=== PATIENT | female | born 1995 | race Caucasian/White ===

== ENCOUNTER 2017-01-12 09:10 | Emergency (ER) | payer OTHER ==
[2017-01-12 10:54] LABS: microscopic required? NO
[2017-01-12 11:03] LABS: UA SPECIFIC GRAVITY 1.015 (1.005-1.035); urine erythrocyte NEGATIVE (NEGATIVE)
[2017-01-12 11:57] VITALS: BP 110/84
== END 2017-01-12 11:57 | disposition home or self-care (01) ==
LOC: ED 09:10
PROVIDERS: Emergency Medicine
DX: N72 Inflammatory disease of cervix uteri (principal); N76.0 Acute vaginitis; B96.89 Other specified bacterial agents as the cause of diseases classified elsewhere; M54.5 Low back pain
CPT/HCPCS: 87491; 87591; J0696

== ENCOUNTER 2017-02-08 21:11 | Emergency (ER) | payer OTHER ==
[2017-02-08 21:17] VITALS: BP 125/83
== END 2017-02-08 22:29 | disposition home or self-care (01) ==
LOC: ED 21:11
DX: H66.92 Otitis media, unspecified, left ear (principal); H10.029 Other mucopurulent conjunctivitis, unspecified eye; J02.9 Acute pharyngitis, unspecified
CPT/HCPCS: J0696

== ENCOUNTER 2017-04-11 15:22 | Emergency (ER) | payer OTHER ==
[~2017-04-11] VITALS: Ht 157.5 cm; Wt 45.4 kg
[2017-04-11 15:40] VITALS: Ht 157.5 cm; Wt 45.4 kg
[2017-04-11 21:20] VITALS: BP 120/82
== END 2017-04-11 21:20 | disposition home or self-care (01) ==
LOC: ED 15:22
DX: N76.0 Acute vaginitis (principal)
CPT/HCPCS: 36415; 87491; 87591

== ENCOUNTER 2017-12-27 01:49 | Emergency (ER) | payer OTHER ==
[2017-12-27 02:03] VITALS: Ht 157.5 cm
[2017-12-27 02:48] LABS: UA SPECIFIC GRAVITY 1.025 (1.005-1.035); microscopic required? YES; urine erythrocyte 3+ (NEGATIVE)
[2017-12-27 03:51] VITALS: BP 111/74
== END 2017-12-27 03:51 | disposition home or self-care (01) ==
LOC: ED 01:49
PROVIDERS: Emergency Medicine
DX: N39.0 Urinary tract infection, site not specified (principal)
CPT/HCPCS: Q0177

== ENCOUNTER 2018-10-07 12:28 | Emergency (ER) | payer OTHER ==
[~2018-10-07] VITALS: Ht 157.5 cm; Wt 57.2 kg
[2018-10-07 12:33] VITALS: BP 118/62; Ht 157.5 cm; Wt 57.2 kg
== END 2018-10-07 14:50 | disposition home or self-care (01) ==
LOC: ED 12:28
DX: F41.9 Anxiety disorder, unspecified (principal)
CPT/HCPCS: 82962